=== PATIENT | female | born 1985 | race Caucasian/White ===

== ENCOUNTER → 2020-07-06 08:15 | Outpatient (CLI) | payer OTHER, SELFPAY ==
[2020-07-06 08:47] LABS: COVID19 -Nasal RAPID Negative (Negative)
== END ==
PROVIDERS: Visit Provider Specialist
DX: Z01.812 Encounter for preprocedural laboratory examination (principal); Z20.822 Contact with and (suspected) exposure to COVID-19
CPT/HCPCS: 87635

== ENCOUNTER 2020-07-06 09:57 | Day surgery (SDC) | payer OTHER, SELFPAY ==
[2020-07-06] VITALS (9 sets, daily range): BP systolic 114–129; BP diastolic 67–82; PULSE 62–81; RESP 10–16; TEMP 36.2–38.2; O2SAT 98–100; BMI 20.7
--- NOTE | 2020-07-06 | PATH_ITS ---
[facility] Accession Number: [id number] . 01 Material submitted: . product of conception - PRODUCTS OF CONCEPTION . 01 Clinical history: . SUCTION D/C . 02 Diagnosis: Products of Conception: Products of conception identified. MRV 07/12/2020 0918 Local . 02 Electronically signed: . Ayanna Peters MD, Pathologist NPI- [id number] . 01 Gross description: . The specimen is received in formalin, labeled products of conception and consists of multiple thibodeaux-pink fragments of soft tissue and clotted blood measuring 4.0 x 4.0 x 2.0 cm in aggregate. Chorionic villi are identified. No parts are identified. Product Support Manager sections are submitted in cassettes A1-A2. ([id number]) /MRV 07/11/2020 1509 Local . 02 Pathologist provided ICD-10: O02.1 . 02 CPT . 755514 Performed at: 01 [facility] [address] [facility], [place], [place] [id number] MD Pablo Gong MD Phone: [phone] Performed at: 02 [facility] [address] [place], [place] [id number] MD Monse Hawkins MD Phone: [phone]
[2020-07-06] MEDS: LACTATED RINGERS 1,000 ML 100 ML IV (10:28)
--- NOTE | 2020-07-06 10:28 | PM.PREOP ---
Pre-operative Note COVID-19 COVID-19 status: Negative Result date/Date tested (Pos, Neg/Pending): 07/06/20 Interval Note History & Physical reviewed/Exam performed by Physician: Yes Changes to H&P: No
--- NOTE | 2020-07-06 11:19 | SUR.OPER ---
Lithotomy on padded OR bed, head on pillow, arms secured on padded arm boards at <90 degrees abduction. Legs secured in padded yellow fins stirrups.
--- NOTE | 2020-07-06 11:28 | PM.OP.1 ---
Operative Date/Time/Diagnoses Date of procedure: 07/06/20 Time of procedure: 11:28 Pre-op diagnosis: missed AB Post-op diagnosis: same Procedure & Clinicians Procedure: suction D&C Same procedure as scheduled: Yes Indications: 8 week missed AB Surgeon: Destiny Cedillo Click Yes if Unassisted: Yes Anesthesia Type: General Operative Notes Findings: moderate amount of retained products of conception Closure Type: not applicable Specimen(s): other ( tissue sent for chromosomes and pathology) Estimated Blood Loss (mL): 50 Blood products transfused: none Procedure in detail: patient was brought to the operating room where she underwent general anesthesia. She was placed in low Yellofin stirrups and prepped and draped in the usual sterile fashion. Warming was with blankets, antibiotics were not indicated, pulsatile stockings were in place and functional. A check system was reviewed with the staff in the room prior to beginning of the case. A single-tooth tenaculum was placed on the anterior lip of the cervix and the cervix was dilated to a number and 10 Hegar dilator. The # 8 suction curette was placed into the uterus and tissue removed. Polyp forceps were used to gather tissue to send for chromosomes. Sharp curette followed by a suction curettage was performed. The remainder of the tissue will be sent to pathology. Patient did not seem to have active bleeding after the procedure. She went to the recovery room in stable condition. Counts of instruments and sponges were correct. Complications: none Post-operative Condition: stable Disposition: same day surgery Plan for aftercare: home when awake and stable
[2020-07-06] MEDS: ONDANSETRON 4 MG/2 ML INJ IV (11:54)
[2020-07-06] MEDS: OXYCODONE/ACETAMINOPHEN 5/325 TABLET 1 TAB PO (11:56)
== END 2020-07-06 12:24 | disposition home or self-care (01) ==
PROVIDERS: Referring Provider Specialist; Visit Provider Specialist
PROC: (CPT 58120; principal; 2020-07-06 10:15)
DX: O02.1 Missed abortion (principal); Z01.812 Encounter for preprocedural laboratory examination; Z20.822 Contact with and (suspected) exposure to COVID-19
CPT/HCPCS: 59820; 87635; 88233; 88262; J2250; J2405; J2704; J3010

== ENCOUNTER → 2020-10-04 12:44 | Outpatient (CLI) | payer OTHER, SELFPAY ==
[2020-10-04 13:05] LABS: Appearance Urine UA CLEAR; Bilirubin Urine UA NEGATIVE (NEGATIVE); Color Urine UA YELLOW; Glucose Urine UA NEGATIVE (Negative); Ketones Urine UA NEGATIVE (NEGATIVE); Leukocyte Esterase Urine UA NEGATIVE (NEGATIVE); Nitrite Urine UA NEGATIVE (Negative); Occult Blood Urine UA NEGATIVE (Negative); Protein Urine UA NEGATIVE (Negative); Specific Gravity Urine UA <=1.005 (1.000-1.035); Urobilinogen Urine UA 0.2 E.U./dL (0.2); pH Urine UA 6.5 (4.5-8.0)
[2020-10-04 13:23] LABS: Add Manual Diff / Slide Review NO; Basophils Absolute Auto 0 /uL (0-100); Basophils Percent Auto 0.4 % (0-2); Eosinophils Absolute Auto 300 /uL (0-450); Eosinophils Percent Auto 3.3 % (2-4); Hematocrit 33.2 % (36-46); Hemoglobin 11.2 g/dL (12.0-16.0); Lymphocytes Absolute Auto 1600 /uL (1100-4500); Lymphocytes Percent Auto 20.6 % (25-40); Mean Corpuscular HGB Conc 33.9 % (30-36); Mean Corpuscular Hemoglobin 31.6 PG (26-34); Mean Corpuscular Volume 93.2 fL (80-100); Monocytes Absolute Auto 800 /uL (0-900); Monocytes Percent Auto 10.1 % (3-14); Neutrophils Absolute Auto 5100 /uL (1500-7000); Neutrophils Percent Auto 65.6 % (50-75); Platelet Count 437 X10^3/uL (150-400); Red Blood Cell Count 3.56 X10^6/uL (4.0-5.2); Red Cell Distribution Width 13.1 % (11.6-14.8); White Blood Cell Count 7.8 X10^3/uL (4.5-11.0)
[2020-10-04 17:07] LABS: Hepatitis B Surface Antigen NEGATIVE s/c (NEGATIVE); Rubella Antibody IgG 26.9 IU/mL (>15)
[2020-10-04 17:21] LABS: HIV 1 & 2 Ab/Ag 4th Gen Combo NEGATIVE (NEGATIVE); Hep C Virus Ab w/Reflex Quant NEGATIVE s/c (NEGATIVE)
[2020-10-05 07:48] LABS: RPR Screen Non Reactive (Non Reactive)
[2020-10-05 09:58] LABS: Varicella IgG Antibody 1908 index (Immune >165)
== END ==
PROVIDERS: PCP Family Medicine; Referring Provider Specialist; Visit Provider Specialist
DX: Z34.81 Encounter for supervision of other normal pregnancy, first trimester (principal)
CPT/HCPCS: 36415; 80055; 81003; 86787; 86803; 86850; 86900; 86901; 87086; 87389

== ENCOUNTER → 2020-12-20 10:02 | Outpatient (CLI) | payer OTHER, SELFPAY ==
--- NOTE | 2020-12-20 10:03 | DI.US.S_ITS ---
PROCEDURE: US OB >= 14 WEEKS FETUS INDICATIONS: ANATOMY OUTSIDE/PRIOR DATING DATA: Last menstrual period (LMP): 07/31/20 . LMP-based estimated date of delivery (RUSS): 05/07/21 . First dating scan (date and location): 09/24/20 . Estimated date of delivery (RUSS) from first dating scan: 05/07/21 . TECHNIQUE: Real-time scanning was performed of the fetus, with image documentation and biometric measurements. Endovaginal scanning: Not performed COMPARISON: [facility], , OB <= 14 WEEKS FETUS, 10/04/2020, 12:28. [facility], , OB <= 14 WEEKS FETUS, 07/06/2020, 9:51. [facility], , OB >= 14 WEEKS FETUS, 07/03/2020, 12:01. FINDINGS: General: A single living intrauterine gestation is present. Presentation: Vertex Placenta: Placental position is anterior , without previa. Amniotic fluid index: 18.4 cm, normal range is 5-24 cm. heart rate: 155 beats per minute. Maternal cervical canal: 3.5 cm long. Normal lower limit is 2.5 cm. biometrics: Biparietal diameter: 5.2 cm, 21 weeks 5 days Head circumference: 19.1 cm, 21 weeks 3 days Abdominal circumference: 15.6 cm, 20 weeks 5 days Femur length: 3.3 cm, 20 weeks 1 day Estimated gestational age from initial scan: 20 weeks 2 days Composite gestational age from present scan: 21 weeks 0 days Estimated weight and percentile: 366 g, 65th percentile Measurement variability for biometric dating: +/- 7 days from 14 weeks to 15 weeks 6 days gestation, +/- 10 days from 16 weeks to 21 weeks 6 days gestation, +/- 2 weeks from 22 weeks to 27 weeks 6 days gestation, +/- 3 weeks for 28 weeks gestation or later. weight reference: 4500 g or EFW >90/95% is considered macrosomia or large for gestational age. EFW <10% is small for gestational age. EFW 5% or less is considered intra-uterine growth restriction. Anatomic survey: Neuro: Ventricles are non-dilated at less than 10 mm. Cisterna magna is normal at 3-11 mm. Cerebellum is normal in size and morphology. Nuchal skin fold: Normal at less than 6 mm between 14-21 weeks gestational age. Face: Nose and lips normal. The facial profile not well seen secondary to gestational lie. Spine: No evidence for spina bifida. Heart: 4-chambered heart is present, with normal ventricular outflow tracts. Diaphragm: Diaphragm is intact. Stomach: Left-sided stomach is present. Kidneys: No hydronephrosis. Normal is less than 5 mm in 2nd trimester, less than 7 mm in 3rd trimester. Cord: 3-vessel cord has orthotopic insertion. Bladder: Normal in size. Extremities: All 4 extremities identified. IMPRESSION: Single living intrauterine fetus in vertex presentation demonstrating expected interval growth. facial profile not well seen secondary to position. Recommend follow-up. Otherwise, normal anatomic survey as above. Dictated by: Moisés Mendez M.D. on 12/25/2020 at 8:41 Approved by: Moisés Mendez M.D. on 12/25/2020 at 8:44
[2020-12-22 18:24] LABS: AFP Value 62.1 ng/mL (.); Gest Age on Col Date 20.3 weeks (.); Gestational Age Ultrasound (.); Insulin Dep Diabetes No (.); OSBR Risk 1IN 10000 (.); Results Report (.); Test Results *Screen Negative* (.)
== END ==
PROVIDERS: PCP Family Medicine; Referring Provider Specialist; Visit Provider Specialist
DX: Z36.89 Encounter for other specified antenatal screening (principal); Z3A.21 21 weeks gestation of pregnancy
CPT/HCPCS: 36415; 76811; 82105

== ENCOUNTER → 2021-04-09 17:49 | Outpatient (CLI) | payer OTHER, SELFPAY ==
[2021-04-12 14:23] LABS: Strep Grp B PCR NEG for Grp B Strep
== END ==
PROVIDERS: PCP Family Medicine; Referring Provider Specialist; Visit Provider Specialist
DX: Z34.83 Encounter for supervision of other normal pregnancy, third trimester (principal); Z3A.36 36 weeks gestation of pregnancy
CPT/HCPCS: 87653

== ENCOUNTER 2021-05-02 08:13 | Inpatient (IN) | payer OTHER, SELFPAY ==
[2021-05-02] MEDS: LACTATED RINGERS 1,000 ML 100 ML IV ×2 (09:10→15:54)
[2021-05-02] MEDS: OXYTOCIN PREMIX 30 UNIT/500 ML PLAST..BAG IV (09:10)
[2021-05-02 09:14] VITALS: BP 128/81
[2021-05-02 10:11] LABS: Add Manual Diff / Slide Review NO; Basophils Absolute Auto 100 /uL (0-100); Basophils Percent Auto 0.9 % (0-2); Eosinophils Absolute Auto 100 /uL (0-450); Eosinophils Percent Auto 0.7 % (2-4); Hematocrit 31.1 % (36-46); Hemoglobin 10.7 g/dL (12.0-16.0); Lymphocytes Absolute Auto 1800 /uL (1100-4500); Lymphocytes Percent Auto 18.9 % (25-40); Mean Corpuscular HGB Conc 34.3 % (30-36); Mean Corpuscular Hemoglobin 33.3 PG (26-34); Monocytes Absolute Auto 700 /uL (0-900); Monocytes Percent Auto 7.3 % (3-14); Neutrophils Absolute Auto 6800 /uL (1500-7000); Neutrophils Percent Auto 72.2 % (50-75); Platelet Count 375 X10^3/uL (150-400); Red Blood Cell Count 3.21 X10^6/uL (4.0-5.2); Red Cell Distribution Width 13.5 % (11.6-14.8); White Blood Cell Count 9.4 X10^3/uL (4.5-11.0)
--- NOTE | 2021-05-02 10:23 | P.HPOB_ITS ---
OB HPI Date/Time Date of admission: 05/02/21 Date Patient Seen: 05/02/21 Time Patient Seen: 09:00 History of Present Condition Chief complaint: Induction : 2 Para: 0 Estimated Date of Delivery: 05/07/21 Estimated Gestational Age (weeks): 39 Narrative: Rafaela Olson is a 35 year old female admitted for induction for distance from the hospital Indications Indication for induction OB: maternal distance History of Present care: good care, initiated at week # (9), number of visits (12) and pounds weight gain (26) Dating criteria: LMP confirmed by 1st trimester US Ultrasounds: normal mid trimester US Obstetrical complications: none Medical complications: none Preadmission Labs Blood type: A (+) positive -: Antibody screen: negative, GBS status: negative, HBsAG: negative, HIV: negative and RPR/VDLR: negative -: Chlamydia screen: not detected and Gonorrhea screen: not detected -: Rubella: immune and Varicella: immune HCAB: negative Cell-free DNA: Normal male 1 hr GTT: 117 Evaluation Evaluation Baseline heart rate: 150 Variability: Moderate (11-25) monitor accelerations: Present Monitor Decelerations: Absent Contraction Frequency (minutes): 0 Category of Tracing: Reactive Status: Category l Dilation (cm): 1 Effacement (%): 80 Dilation: 1-2 cm Effacement: >/=80% station: 0 Position of cervix: mid Consistency: soft Gonzalez score: 9 PFSH Medical History (Updated 02/04/21 @ 09:39 by Jil Jackson DO) Abnormal Pap smear of cervix (~2016) AMA (advanced maternal age) primigravida 35+ Anxiety (~06/2020) Chicken pox Depression (~06/2020) Frequent headaches (~04/2020) Gluten intolerance HPV in female (~2016) Missed ab (~07/03/20) SAB (spontaneous ) (~07/03/20) Surgical History (Updated 09/25/20 @ 16:19 by Patricia Naqiv RN) Anesthesia H/O LEEP (~2016) S/P dilation and curettage (~07/06/20) [place] teeth extracted Family History (Updated 06/25/20 @ 11:05 by Patricia Naqvi RN) Mother Skin cancer Father Hypertension Hyperlipidemia Grandmother S/P laparoscopic cholecystectomy Grandfather Parkinson disease Grandmother Lupus Grandfather Cardiac anomaly Family/Other Lupus Brother Crohn's disease Family/Other Diabetes mellitus Cancer Breast cancer Social History marital status: household members: spouse lives independently: Yes pets and animals: Yes (X 2 dogs and X 10 Chickens and Bunnies) occupational status: employed (Works in [employer]) current occupational exposures/hazards: Yes special manjit needs: No Smoking Status: Never smoker second hand exposure: No alcohol intake: former substance use type: does not use Meds Home Medications and Allergies Home Medications Medication Instructions Recorded Confirmed Type prenat.vits,eduard,jii-nkfi-tcved 1 tab PO DAILY 06/25/20 05/02/21 History ondansetron 4 mg disintegrating 4 mg PO Q6H PRN #20 tab 10/04/20 05/02/21 Rx tablet ondansetron 4 mg disintegrating See Rx Instructions .ROUTE 10/31/20 05/02/21 Rx tablet .COMPLEX #20 each metoclopramide HCl 10 mg tablet 10 mg PO Q6H PRN #10 tab 03/28/21 05/02/21 Rx (Reglan) Allergies Allergy/AdvReac Type Severity Reaction Status Date / Time gluten Allergy Intermediate GI Verified 05/02/21 08:37 discomfort w/nausea, headache Review of Systems Review of Systems Narrative: Patient denies headaches, scotomata, epigastric pain. Good movement. No leakage of fluid. No regular contractions. OB Exam Narrative Exam Narrative: Blood pressure 128 over 81, pulse of 83, temperature 36.9? HEENT exam within normal limits. Lungs are clear to auscultation percussion. Heart is regular rate and rhythm no S3-S4 murmurs. Abdomen is gravid. Fetus is vertex. Extremities without edema and nontender. Normal DTRs. Objective Labs Result Diagrams: 05/02/21 08:23 Labs: Laboratory Results - last 24 hr 05/02/21 08:23 WBC 9.4 RBC 3.21 L Hgb 10.7 L Hct 31.1 L MCV 97.0 MCH 33.3 MCHC 34.3 RDW 13.5 Plt Count 375 Neut % (Auto) 72.2 Lymph % (Auto) 18.9 L [place] % (Auto) 7.3 Eos % (Auto) 0.7 L Baso % (Auto) 0.9 Neut # (Auto) 6800 Lymph # (Auto) 1800 [place] # (Auto) 700 Eos # (Auto) 100 Baso # (Auto) 100 Assessment and Plan Assessment and Plan Assessment and Plan narrative: 39 week gestation with favorable cervix for Pitocin induction for distance from the hospital. Anticipate vaginal delivery. Epidural when patient requests.
[2021-05-02 10:25] LABS: COVID19 -Nasal RAPID Negative (Negative)
[2021-05-02] MEDS: FENT 2MCG/ML BUPIV 0.125% EPI 200 MCG/100 ML PLAST..BAG 12 MCG EPIDURAL ×2 (16:08→22:57)
--- NOTE | 2021-05-02 16:40 | PM.OBPNLAB ---
Date/Time Date Patient Seen: 05/02/21 Time Patient Seen: 16:40 Pain Control Pain control: epidural Pelvic Exam Dilation (cm): 4 Effacement (%): 80 station: 0 Amniotic membrane status: Ruptured (Clear) Contractions Contractions on admission: regular Monitor mode: External Pitocin rate (mU/min): 6 Contraction frequency (min): 3 Contraction duration (min): 1 Contraction pattern: Regular Contraction intensity: Strong/Firm Status status: Category l Heart Rate Baseline: 120 Monitor Accelerations: Present Monitor Decelerations: Absent Monitor Variability: Moderate Assessment and Plan Assessment: induction ongoing Plan: continuous present management
--- NOTE | 2021-05-03 00:25 | P.PCNOB_ITS ---
Labor & Delivery Delivery date: 05/02/21 Intrapartal Events: Prolonged 2nd Stage > 2.5 hours Induction method: per pitocin protocol Delivery augmentation: rupture of membranes Delivery monitor: external FHT and external uterine Route of delivery: vacuum extraction Indication for instrumentation: maternal exhaustion L&D Laceration Description: Perineal - 2nd Degree and Labial (Right) Delivery repair: chromic (3 0) Estimated blood loss (mL): 500 Anesthesia Type: Epidural Narrative: Patient arrived on Labor and delivery for Pitocin induction for distance from the hospital. She received an epidural catheter for pain control. She was AROM for clear fluid. Heart tones were reassuring throughout labor. When the patient began 2nd stage of labor there were repetitive deep variable decelerations. Pitocin was stopped, position change, IV fluid bolus, O2 by facemask for resuscitation. The decelerations resolved with some short-term tachycardia that then resolved. After 3-1/2 hours of pushing the patient expressed exhaustion. The vacuum was placed and with 1 push the head was delivered. There was a loose nuchal cord that was released. The delivered and placed on maternal abdomen. After the cord stopped pulsating the cord was clamped, cut, and cord bloods obtained. The placenta delivered spontaneously, intact, with 3 vessels. There was significant initial bleeding that responded to uterine massage and IV Pitocin. A 2nd degree perineal tear was repaired with 3 0 chromic suture in the usual 2 layer fashion. A first- degree labial tear was reapproximated with 1 stitch of 3-0 chromic suture. [place] Baby 1: Infant gender: Male Presentation: vertex Position: Left Occiput Anterior Placenta delivery description: Spontaneous Cord Vessel Description: 3 Vessels and Nuchal Cord (Loose) score (1 min): 9 score (5 min): 9 weight: 7 lb 4 oz Plan for aftercare: Routine care
[2021-05-03] MEDS: ACETAMINOPHEN 325 MG TABLET 650 MG PO ×4 (01:06→19:50)
[2021-05-03] MEDS: DERMOPLAST SPRAY 20% 60 ML 1 SPRAY TOP (01:07)
[2021-05-03] MEDS: IBUPROFEN 600 MG TABLET PO ×4 (01:07→19:49)
[2021-05-03] MEDS: FERROUS SULFATE 325 MG TABLET PO (08:20)
[2021-05-03] MEDS: PRENATAL VIT,CALC/IRON/FOLIC 1 TABLET 1 TAB PO (08:20)
[2021-05-03 11:52] LABS: Add Manual Diff / Slide Review NO; Basophils Absolute Auto 0 /uL (0-100); Basophils Percent Auto 0.2 % (0-2); Eosinophils Absolute Auto 100 /uL (0-450); Eosinophils Percent Auto 0.4 % (2-4); Hematocrit 23.3 % (36-46); Hemoglobin 8.1 g/dL (12.0-16.0); Lymphocytes Absolute Auto 1700 /uL (1100-4500); Lymphocytes Percent Auto 13.6 % (25-40); Mean Corpuscular HGB Conc 34.7 % (30-36); Mean Corpuscular Hemoglobin 33.4 PG (26-34); Mean Corpuscular Volume 96.3 fL (80-100); Monocytes Absolute Auto 900 /uL (0-900); Monocytes Percent Auto 7.5 % (3-14); Neutrophils Absolute Auto 9700 /uL (1500-7000); Neutrophils Percent Auto 78.3 % (50-75); Platelet Count 309 X10^3/uL (150-400); Red Blood Cell Count 2.42 X10^6/uL (4.0-5.2); Red Cell Distribution Width 13.3 % (11.6-14.8); White Blood Cell Count 12.4 X10^3/uL (4.5-11.0)
--- NOTE | 2021-05-03 15:22 | PM.OBPN.1 ---
Subjective - OB Subjective Patient comments: no complaints [place] baby status: doing well and nursing well [place] feeding status: exclusively breast feeding Narrative: Patient is feeling well. She was able to ambulate without any further dizziness. She had a bowel movement. She denies concerns with her bleeding. Pain is under control. Date Patient Seen: 05/03/21 Time Patient Seen: 13:00 Exam Vital Signs (past 8 hours): Blood pressure 111/65, pulse 68, temperature 36.4? Narrative Exam Narrative: Abdomen is soft, nontender. Uterus is firm, at U, nontender. Repair is intact. Mild lochia. Extremities without edema and nontender. Objective Labs Result Diagrams: 05/03/21 11:22 Labs: Laboratory Results - last 24 hr 05/03/21 11:22 WBC 12.4 H RBC 2.42 L Hgb 8.1 L Hct 23.3 L MCV 96.3 MCH 33.4 MCHC 34.7 RDW 13.3 Plt Count 309 Neut % (Auto) 78.3 H Lymph % (Auto) 13.6 L [place] % (Auto) 7.5 Eos % (Auto) 0.4 L Baso % (Auto) 0.2 Neut # (Auto) 9700 H Lymph # (Auto) 1700 [place] # (Auto) 900 Eos # (Auto) 100 Baso # (Auto) 0 Assessment & Plan Plan day: 1 plan OB: routine care Time Spent With Patient Time: Total time spent is greater than 50% in coordination of care (as documented) at patient's floor/unit and/or counseling patient: Time with patient: less than 15 minutes
[2021-05-04] MEDS: ACETAMINOPHEN 325 MG TABLET 650 MG PO ×2 (03:32→12:03)
[2021-05-04] MEDS: IBUPROFEN 600 MG TABLET PO ×2 (03:32→12:03)
--- NOTE | 2021-05-04 08:22 | P.DS_ITS ---
Discharge Providers Provider Date of admission: 05/02/21 08:13 Discharge Date: 05/04/21 Primary care physician: Romario Cárdenas MD Consults: 05/02/21 08:23 Consult to Anesthesiology Urgent Comment: Consulting Provider: Anesthesiologist Reason for consultation: Epidural Has provider been notified: No 05/04/21 00:22 Consult to Director Of Operations Support Routine Comment: Discharge provider: Destiny Cedillo MD Summary Hospital Course Date Patient Seen: 05/04/21 Time Patient Seen: 08:22 Diagnoses: 39 week gestation, vacuum assisted vaginal delivery with repair of second-degree tear Hospital Course: Patient arrived on Labor and delivery for induction for distance from the hospital. She was started on Pitocin. She received an epidural catheter for pain control. She had a vacuum assisted vaginal delivery for maternal exhaustion after 3-1/2 hours of pushing. She had a second-degree tear that was repaired. She is urinating and ambulating well. Passing gas. Pain is under control. No headaches, scotomata, epigastric pain. She is breast-feeding without difficulty although painful. Peripartum Data Delivery Method: Assisted Delivery (Vacuum assisted) Laceration Description: Perineal - 2nd Degree Procedures: Pitocin induction, epidural catheter, vacuum assisted vaginal delivery, repair of second-degree tear complications: none 1: Gender: Male Disposition of : home Discharge Diagnosis (1) Vacuum-assisted vaginal delivery: Status: Acute Status at Discharge Cognitive/behavioral status at discharge: oriented Functional status at discharge: independent ambulation Overall status at discharge: patient is progressing back to baseline Time Spent with Patient Time attestation: Total time spent providing and/or coordinating discharge services: Time spent: Less than 30 minutes Objective Labs Result Diagrams: 05/03/21 11:22 Labs: Laboratory Results - last 24 hr 05/03/21 11:22 WBC 12.4 H RBC 2.42 L Hgb 8.1 L Hct 23.3 L MCV 96.3 MCH 33.4 MCHC 34.7 RDW 13.3 Plt Count 309 Neut % (Auto) 78.3 H Lymph % (Auto) 13.6 L [place] % (Auto) 7.5 Eos % (Auto) 0.4 L Baso % (Auto) 0.2 Neut # (Auto) 9700 H Lymph # (Auto) 1700 [place] # (Auto) 900 Eos # (Auto) 100 Baso # (Auto) 0 Exam Vital Signs (past 8 hours): Blood pressure 113/76, pulse 73, temperature 97.5? Narrative Exam Narrative: Abdomen is soft, nontender. Uterus is firm, at U, nontender. Repair is intact. Mild lochia. Extremities without edema and nontender. Patient is Rh positive, rubella immune, she received Tdap in the 3rd trimester. Discharge Plan Discharge orders & Medications Discharge Orders: Discharge (Order); Ordered 05/04/21 Ordered By: Destiny Cedillo Prescriptions: Continued prenat.vits,eduard,uuc-pghb-rtczt Tablet 1 tab PO DAILY 0RF Discontinued ondansetron 4 mg tablet,disintegrating See Rx Instructions .ROUTE .COMPLEX Qty: 20 2RF Dose Instruction: DISSOLVE ONE TABLET UNDER THE TONGUE EVERY 6 HOURS NEEDED FOR NAUSEA AND VOMITING Rx Instructions: DISSOLVE ONE TABLET UNDER THE TONGUE EVERY 6 HOURS NEEDED FOR NAUSEA AND VOMITING metoclopramide HCl [Reglan] 10 mg tablet 10 mg PO Q6H PRN (Reason: nausea and vomiting) Qty: 10 2RF ondansetron 4 mg tablet,disintegrating 4 mg PO Q6H PRN (Reason: nausea and vomiting) Qty: 20 0RF Follow up/Referrals: Destiny Cedillo MD [Physician] - 06/12/21 1:00 pm (Your 6 week follow up appointment with Dr. Cedillo is scheduled) Diet/Activity/Treatments Diet: Regular Activity: Nothing in vagina for 6 weeks Skin/Wound/Dressing Care Report to your healthcare provider any signs of infection, such as:: chills, fever and unusual redness Visit Report/Discharge Packet Stand Alone Forms: Discharge: Care Discharge Data Primary Care Provider: Romario Cárdenas
[2021-05-04 10:22] VITALS: BP 128/81; PULSE 68; RESP 17; TEMP 36.7
== END 2021-05-04 12:20 | disposition home or self-care (01) | DRG 807 ==
PROVIDERS: Admitting Provider Specialist; PCP Family Medicine; Referring Provider Specialist; Visit Provider Specialist
DX: O63.1 Prolonged second stage (of labor) (principal); Z37.0 Single live birth; Z3A.39 39 weeks gestation of pregnancy; O76 Abnormality in fetal heart rate and rhythm complicating labor and delivery; O69.81X0 Labor and delivery complicated by cord around neck, without compression, not applicable or unspecified; O75.81 Maternal exhaustion complicating labor and delivery; O70.1 Second degree perineal laceration during delivery; O70.0 First degree perineal laceration during delivery; Z20.822 Contact with and (suspected) exposure to COVID-19
CPT/HCPCS: 01967; 36415; 59050; 59400; 85025; 86850; 86900; 86901; 87635; C9803; G0379; J2590

== ENCOUNTER 2021-08-26 13:45 | Outpatient (RCR) | payer OTHER, SELFPAY ==
--- NOTE | 2021-08-22 15:20 | PT.OIE ---
Current Diagnoses Other female genital prolapse (08/22/21) Unspecified urinary incontinence (08/22/21) Past Medical History (Last Updated 02/04/21 @ 09:38 by Jil Jackson DO) Abnormal Pap smear of cervix (~2016) AMA (advanced maternal age) primigravida 35+ Anxiety (~06/2020) Chicken pox Depression (~06/2020) Frequent headaches (~04/2020) Gluten intolerance H/O LEEP (~2016) HPV in female (~2017) Missed ab (~07/03/20) S/P dilation and curettage (~07/06/20) SAB (spontaneous ) (~07/03/20) [place] teeth extracted Past Surgical History (Last Updated 09/25/20 @ 16:19 by Patricia Naqvi RN) Anesthesia H/O LEEP (~2016) S/P dilation and curettage (~07/06/20) [place] teeth extracted Visit Care Team Role Provider Type Romario Cárdenas MD Family Provider Non-Staff Primary Care Provider Specialty: Family Practice Address: [address] [place] [address], [address], [place], [address] Email: Destiny Cedillo MD Attending Provider Physician Referring Provider Specialty: ASSISTANT MERCHANDISER Address: [address] [place] [address], [address] Email: [email or web address] Physical Therapy Initial Evaluation PT-OP-A Visit Information Start: 08/20/21 10:33 Freq: Status: Active Protocol: Document 08/22/21 13:45 AMB (Rec: 08/23/21 08:15 AMB [id number]) Out-Patient Physical Therapy Visit Information Visit Information Visit Type Initial Evaluation Visit Start Time 13:45 Visit Stop Time 14:30 Total Visit Minutes 45 Visit Number 1 PT-OP-B Current Condition Start: 08/20/21 10:33 Freq: Status: Active Protocol: Document 08/22/21 13:48 AMB (Rec: 08/22/21 14:24 AMB [id number]) Current Condition History of Current Condition Onset Date April 2021 Current Complaints Mixed urinary incontinence History of Current Condition Rafaela is , with the vaginal delivery with vacuum and 2nd degree perineal laceration on May 02, 2021. She has had urinary incontinence with walking hiking sneezing and coughing. Work at [employer] does have lift 30# 1x/ week - even walking around can cause leaking, urgency with running water. About 2-3 leaks/day sort of staying the same. Treatment Goals Patient/Caregiver Goals stop leaking with walking around/hiking. Prior Functional Status Baseline Function- ADL's Independent Baseline Function- Mobility Independent Personal Factors Other Personal Factors That May Effect pt lives on [facility], Therapy/Recovery has a $50 copay PT-OP-C Subjective Start: 08/20/21 10:33 Freq: Status: Active Protocol: Document 08/22/21 13:45 AMB (Rec: 08/23/21 08:15 AMB [id number]) Patient Questionnaires Pelvic Pain and Urgency/Frequency Patient Symptom Scale Pelvic Pain Score 10 PT-OP-I Pelvic Floor Start: 08/20/21 10:33 Freq: Status: Active Protocol: Document 08/22/21 13:45 AMB (Rec: 08/23/21 15:20 AMB [id number]) Pelvic Floor Assessment Urine Pelvic Floor Surgery No Urinary Symptoms Urge Sensation,Prolapse, Falling Out Feeling/Heavy Leakage Size Small Leakage Cause Cough,Exercise,Lifting,Sneeze, Urge Leaks Per Day 3 Nocturia 3 Urine Pad Type Panty Liner Pelvic Clock Pelvic Clock 3-6 Tenderness Pelvic Clock 6-9 Tenderness Prolapse Cystocele Grade 2 Perineal Descent Resting Absent Bearing Present Contraction Ability Voluntary Contraction Weak Voluntary Relaxation Weak Manual Muscle Testing Left 2 Manual Muscle Testing Right 2 Manual Muscle Testing Anterior 2 Manual Muscle Testing Posterior 2 Muscle Endurance (Seconds) 3 Number of Quick Contractions In 10 4 Seconds Comments Pelvic Floor Comments 3 finger width diastasis above umbilicus, 2 finger width below PT-OP-T Assessment and Plan Start: 08/20/21 10:33 Freq: Status: Active Protocol: Document 08/22/21 13:45 AMB (Rec: 08/23/21 15:20 AMB [id number]) Physical Therapy Assessment Rehab Potential Rehabilitation Potential Good Evaluation Complexity Number of Personal Factors/Comorbidities 1-2 Number of Body Systems Impaired 1-2 Clinical Presentation at Evaluation Stable Impairments Impairments Activity Tolerance,Strength Goals Three Impairment HEP Short Term Goal (STG) Rafaela will be independent with a pelvic floor and core HEP for her pelvic floor weakness and diastasis recti. STG Duration 4 weeks Long-Term Goal (LTG) Rafaela will be independent with urge reduction techniques. LTG Duration 10 weeks Two Impairment Pelvic floor strength Short Term Goal (STG) Rafaela will contract her pelvic floor muscles for 10 seconds while in standing. STG Duration 4 weeks 2Nd Grade Teacher Goal (LTG) Rafaela will contract her pelvic floor muscles while moving from sit to stand. LTG Duration 10 weeks One Impairment Continence Short Term Goal (STG) Rafaela will hike for 30 minutes without leaking STG Duration 4 weeks 2[employer] Grade Teacher Goal (LTG) Rafaela will lift 30 pounds from the floor to waist height without leaking. LTG Duration 10 weeks Assessment Summary Assessment Rafaela attends physical therapy with urinary mixed incontinence, mild cystocele and diastasis recti. She was able to contract her pelvic floor, but was weak, and would benefit from pelvic floor strengthening as well as urge reduction and overall core stability training given her feeling of heaviness and weakness. Physical Therapy Plan Frequency and Duration Frequency of Treatment 1x/Week Duration of Treatment 10 weeks Plan of Care Start Date 08/22/21 Plan of Care End Date 10/31/21 Therapeutic Interventions Therapeutic Interventions Home Exercise Program,Manual Therapy,Neuromuscular Re- education,Self-Care/Home Management,Therapeutic Activities,Therapeutic Exercises Modalities Biofeedback,Electric Stimulation Next Visit Focus/Plan Next Note Type Treatment Note Next Visit Plan start with biofeedback, progress into seated HEP
--- NOTE | 2021-08-22 15:21 | PT.OPPOC ---
Physical, Occupational & Speech Therapy At [facility] Current Diagnoses Other female genital prolapse (08/22/21) Unspecified urinary incontinence (08/22/21) Visit Care Team Role Provider Type Romario Cárdenas MD Family Provider Non-Staff Primary Care Provider Specialty: Family Practice Address: [address], [address], [place], [address] Email: Destiny Cedillo MD Attending Provider Physician Referring Provider Specialty: RESISTANCE WELDING MACHINE OPERATOR Address: [address] [place] [address], [id number] Email: [email or web address] Plan Of Care PT-OP-T Assessment and Plan Start: 08/20/21 10:33 Freq: Status: Active Protocol: Document 08/22/21 13:45 AMB (Rec: 08/23/21 15:20 AMB [id number]) Physical Therapy Assessment Rehab Potential Rehabilitation Potential Good Evaluation Complexity Number of Personal Factors/Comorbidities 1-2 Number of Body Systems Impaired 1-2 Clinical Presentation at Evaluation Stable Impairments Impairments Activity Tolerance,Strength Goals Three Impairment HEP Short Term Goal (STG) Rafaela will be independent with a pelvic floor and core HEP for her pelvic floor weakness and diastasis recti. STG Duration 4 weeks In Store Demonstrator Goal (LTG) Rafaela will be independent with urge reduction techniques. LTG Duration 10 weeks Two Impairment Pelvic floor strength Short Term Goal (STG) Rafaela will contract her pelvic floor muscles for 10 seconds while in standing. STG Duration 4 weeks Halfway Goal (LTG) Rafaela will contract her pelvic floor muscles while moving from sit to stand. LTG Duration 10 weeks One Impairment Continence Short Term Goal (STG) Rafaela will hike for 30 minutes without leaking STG Duration 4 weeks In Store Demonstrator Goal (LTG) Rafaela will lift 30 pounds from the floor to waist height without leaking. LTG Duration 10 weeks Assessment Summary Assessment Rafaela attends physical therapy with urinary mixed incontinence, mild cystocele and diastasis recti. She was able to contract her pelvic floor, but was weak, and would benefit from pelvic floor strengthing as well as urge reduction and overall core stability training given her feeling of heaviness and weakness. Physical Therapy Plan Frequency and Duration Frequency of Treatment 1x/Week Duration of Treatment 10 weeks Plan of Care Start Date 08/22/21 Plan of Care End Date 10/31/21 Therapeutic Interventions Therapeutic Interventions Home Exercise Program,Manual Therapy,Neuromuscular Re- education,Self-Care/Home Management,Therapeutic Activities,Therapeutic Exercises Modalities Biofeedback,Electric Stimulation Next Visit Focus/Plan Next Note Type Treatment Note Next Visit Plan start with biofeedback, progress into seated HEP Plan of Care Dates Plan of Care Start Date 08/22/21 Plan of Care End Date 10/31/21 Electronically Signed by: Becka Jacob, PT 08/23/21 2574 If you are in agreement with this Plan of Care, please return a signed and dated copy. I have reviewed this Plan of Care and certify that the skilled therapy services above are required to meet the patient?s needs. Physician Signature Date Printed Name and Credentials Clinical Instructor Signature Printed Name and Credentials
--- NOTE | 2021-08-26 16:00 | PT.OTN ---
Current Diagnoses Other female genital prolapse (08/26/21) Unspecified urinary incontinence (08/26/21) Physical Therapy Treatment Note PT-OP-A Visit Information Start: 08/20/21 10:33 Freq: Status: Active Protocol: Document 08/26/21 13:46 AMB (Rec: 08/26/21 14:28 AMB [id number]) Out-Patient Physical Therapy Visit Information Visit Information Visit Type Treatment Note Visit Start Time 13:45 Visit Stop Time 14:30 Total Visit Minutes 45 Visit Number 2 PT-OP-B Current Condition Start: 08/20/21 10:33 Freq: Status: Active Protocol: Document 08/22/21 13:48 AMB (Rec: 08/22/21 14:24 AMB [id number]) Current Condition History of Current Condition Onset Date April 2021 Current Complaints Mixed urinary incontinence History of Current Condition Rafaela is , with the vaginal delivery with vacuum and 2nd degree perineal laceration on May 02, 2021. She has had urinary incontinence with walking hiking sneezing and coughing. Work at [employer] does have lift 30# 1x/ week - even walking around can cause leaking, urgency with running water. About 2-3 leaks/day sort of staying the same. Treatment Goals Patient/Caregiver Goals stop leaking with walking around/hiking. Prior Functional Status Baseline Function- ADL's Independent Baseline Function- Mobility Independent Personal Factors Other Personal Factors That May Effect pt lives on [facility], Therapy/Recovery has a $50 copay PT-OP-C Subjective Start: 08/20/21 10:33 Freq: Status: Active Protocol: Document 08/26/21 13:46 AMB (Rec: 08/26/21 14:28 AMB [id number]) OP-PT Subjective Patient Comments Patient Comments Pt reports things are the same . Has been working on urge reduction strategies. PT-OP-I Pelvic Floor Start: 08/20/21 10:33 Freq: Status: Active Protocol: Document 08/22/21 13:45 AMB (Rec: 08/23/21 15:20 AMB [id number]) Pelvic Floor Assessment Urine Pelvic Floor Surgery No Urinary Symptoms Urge Sensation,Prolapse, Falling Out Feeling/Heavy Leakage Size Small Leakage Cause Cough,Exercise,Lifting,Sneeze, Urge Leaks Per Day 3 Nocturia 3 Urine Pad Type Panty Liner Pelvic Clock Pelvic Clock 3-6 Tenderness Pelvic Clock 6-9 Tenderness Prolapse Cystocele Grade 2 Perineal Descent Resting Absent Bearing Present Contraction Ability Voluntary Contraction Weak Voluntary Relaxation Weak Manual Muscle Testing Left 2 Manual Muscle Testing Right 2 Manual Muscle Testing Anterior 2 Manual Muscle Testing Posterior 2 Muscle Endurance (Seconds) 3 Number of Quick Contractions In 10 4 Seconds Comments Pelvic Floor Comments 3 finger width diastasis above umbilicus, 2 finger width below PT-OP-Q Treatments Start: 08/20/21 10:33 Freq: Status: Active Protocol: Document 08/26/21 13:45 AMB (Rec: 08/30/21 08:51 AMB [id number]) Therapeutic Exercises Supine Exercises 1 Supine Exercise Name DKTC Reps/Minutes 30x2 Comments for posterior pelvic tilt legs elevated Reps/Minutes long holds and quick flicks to reduce prolapse sx Neuro Re-Education Treatment Other Activities sEMG Comments see assessment, pt walter well without visible abdominal or gluteal substitution, did need cues for breath PT-OP-T Assessment and Plan Start: 08/20/21 10:33 Freq: Status: Active Protocol: Document 08/26/21 13:46 AMB (Rec: 08/26/21 14:28 AMB [id number]) Physical Therapy Assessment Goals Three Impairment HEP Short Term Goal (STG) Rafaela will be independent with a pelvic floor and core HEP for her pelvic floor weakness and diastasis recti. STG Duration 4 weeks Director Community Organization Goal (LTG) Rafaela will be independent with urge reduction techniques. LTG Duration 10 weeks Two Impairment Pelvic floor strength Short Term Goal (STG) Rafaela will contract her pelvic floor muscles for 10 seconds while in standing. STG Duration 4 weeks Director Community Organization Goal (LTG) Rafaela will contract her pelvic floor muscles while moving from sit to stand. LTG Duration 10 weeks One Impairment Continence Short Term Goal (STG) Rafaela will hike for 30 minutes without leaking STG Duration 4 weeks Custodial Goal (LTG) Rafaela will lift 30 pounds from the floor to waist height without leaking. LTG Duration 10 weeks Assessment Summary Assessment Rafaela did well with biofeedback . Max 17.8, avg 8.7 baseline 4. Quick flicks: Max 15, avg 9. Physical Therapy Plan Next Visit Focus/Plan Next Note Type Treatment Note Next Visit Plan start with biofeedback, progress into seated HEP
--- NOTE | 2021-09-22 11:52 | PT.OPDS ---
Current Diagnoses Other female genital prolapse (08/26/21) Unspecified urinary incontinence (08/26/21) Visit Care Team Role Provider Type Romario Cárdenas MD Family Provider Non-Staff Primary Care Provider Specialty: Family Practice Address: [address], [address], [place], [address] Email: Destiny Cedillo MD Attending Provider Physician Referring Provider Specialty: PHARMACEUTICAL PROCESS ENGINEER Address: [address] [place] [address], [address] Email: [email or web address] Visit Number Visit Number 2 Discharge Summary PT-OP-B Current Condition Start: 08/20/21 10:33 Freq: Status: Active Protocol: Document 08/22/21 13:48 AMB (Rec: 08/22/21 14:24 AMB [id number]) Current Condition History of Current Condition Onset Date April 2021 Current Complaints Mixed urinary incontinence History of Current Condition Rafaela is , with the vaginal delivery with vacuum and 2nd degree perineal laceration on May 02, 2021. She has had urinary incontinence with walking hiking sneezing and coughing. Work at [employer] does have lift 30# 1x/ week - even walking around can cause leaking, urgency with running water. About 2-3 leaks/day sort of staying the same. Treatment Goals Patient/Caregiver Goals stop leaking with walking around/hiking. Prior Functional Status Baseline Function- ADL's Independent Baseline Function- Mobility Independent Personal Factors Other Personal Factors That May Effect pt lives on [facility], Therapy/Recovery has a $50 copay PT-OP-C Subjective Start: 08/20/21 10:33 Freq: Status: Active Protocol: Document 08/26/21 13:46 AMB (Rec: 08/26/21 14:28 AMB [id number]) OP-PT Subjective Patient Comments Patient Comments Pt reports things are the same . Has been working on urge reduction strategies. PT-OP-I Pelvic Floor Start: 08/20/21 10:33 Freq: Status: Active Protocol: Document 08/22/21 13:45 AMB (Rec: 08/23/21 15:20 AMB [id number]) Pelvic Floor Assessment Urine Pelvic Floor Surgery No Urinary Symptoms Urge Sensation,Prolapse, Falling Out Feeling/Heavy Leakage Size Small Leakage Cause Cough,Exercise,Lifting,Sneeze, Urge Leaks Per Day 3 Nocturia 3 Urine Pad Type Panty Liner Pelvic Clock Pelvic Clock 3-6 Tenderness Pelvic Clock 6-9 Tenderness Prolapse Cystocele Grade 2 Perineal Descent Resting Absent Bearing Present Contraction Ability Voluntary Contraction Weak Voluntary Relaxation Weak Manual Muscle Testing Left 2 Manual Muscle Testing Right 2 Manual Muscle Testing Anterior 2 Manual Muscle Testing Posterior 2 Muscle Endurance (Seconds) 3 Number of Quick Contractions In 10 4 Seconds Comments Pelvic Floor Comments 3 finger width diastasis above umbilicus, 2 finger width below PT-OP-T Assessment and Plan Start: 08/20/21 10:33 Freq: Status: Active Protocol: Document 09/22/21 11:51 AMB (Rec: 09/22/21 11:52 AMB [id number]) Physical Therapy Assessment Goals Three Impairment HEP Short Term Goal (STG) Rafaela will be independent with a pelvic floor and core HEP for her pelvic floor weakness and diastasis recti. STG Duration 4 weeks Cereal Supervisor Goal (LTG) Rafaela will be independent with urge reduction techniques. LTG Duration 10 weeks Two Impairment Pelvic floor strength Short Term Goal (STG) Rafaela will contract her pelvic floor muscles for 10 seconds while in standing. STG Duration 4 weeks Custodial Goal (LTG) Rafaela will contract her pelvic floor muscles while moving from sit to stand. LTG Duration 10 weeks One Impairment Continence Short Term Goal (STG) Rafaela will hike for 30 minutes without leaking STG Duration 4 weeks Cereal Supervisor Goal (LTG) Rafaela will lift 30 pounds from the floor to waist height without leaking. LTG Duration 10 weeks Assessment Summary Assessment Pt was seen for two visits of physical therapy and then called to cancel her remaining appointments due to finding PT closer to home.
== END 2021-09-23 14:15 ==
LOC: PHYS 13:45
PROVIDERS: Family Provider Family Medicine; PCP Family Medicine; Referring Provider Specialist; Visit Provider Specialist
DX: R32 Unspecified urinary incontinence (principal); N81.89 Other female genital prolapse
CPT/HCPCS: 97110; 97112; 97161